=== PATIENT | male | born 1990 | race Two or more races ===

== ENCOUNTER 2023-07-13 16:58 | Emergency (ER) | payer MEDICAID ==
[~2023-07-13] VITALS: Ht 177.8 cm; Wt 86.4 kg
[2023-07-13 17:04] VITALS: TEMP 97.8
[2023-07-13] MEDS: proparacaine 0.5% ophthalmic drops 15ml EACHEYE ONE (18:31)
[2023-07-13] MEDS ORDERED: POLOS LEFTEYE (18:45)
[2023-07-13 18:50] VITALS: BP 162/81; PULSE 71; RESP 16; O2SAT 98
== END 2023-07-13 18:56 | disposition home or self-care (01) ==
LOC: ER 17:01
DX: T15.12XA Foreign body in conjunctival sac, left eye, initial encounter (principal); X58.XXXA Exposure to other specified factors, initial encounter; Y93.9 Activity, unspecified; Y92.89 Other specified places as the place of occurrence of the external cause; Y99.8 Other external cause status
CPT/HCPCS: 65205; 99284